=== PATIENT | male | born 1965 | race African-American/Black ===

== ENCOUNTER 2018-03-13 14:36 | Inpatient (IN) | payer MEDICARE, MEDICAID, OTHER ==
[~2018-03-13] VITALS: Ht 185.4 cm; Wt 91.6 kg
[~2018-03-13 14:36] MED LIST: ASPI-1158 PO; CARV25TA47 PO; FURO10VI3 PO; LISI40TA4 PO; P20 PO; POTA20TA82 PO; SIMV20TA6 PO; SPIR25TA PO
[2018-03-13] MEDS ORDERED: ONDANSETRON HCL 4MG/2ML INJ ONE (18:57)
[2018-03-14] MEDS ORDERED: FUROSEMIDE 40MG/4ML VIAL IV ONE (00:15)
[2018-03-14] MEDS ORDERED: NITROGLYCERIN OINT 1GM/INCH UDPKT TD ONE (00:15)
[2018-03-14 00:52] LABS: BASOPHILS % 1.3 % (0.0-2.0); EOSINOPHILS % 1.3 % (0.0-5.0); HEMATOCRIT. 41.9 % (42.0-52.0); LYMPHOCYTES % 20.1 % (20.0-50.0); MEAN CORPUSCULAR HEMOGLOBIN 23.4 pg (28.0-32.0); MEAN CORPUSCULAR VOLUME 75.4 fL (80.0-94.0); MEAN PLATELET VOLUME 8.7 fl (7.4-10.4); MONOCYTES % 13.7 % (2.0-8.0); NEUTROPHILS % 63.6 % (40.0-76.0); PLATELET 297 x1000/uL (130-400); RED BLOOD CELL COUNT 5.56 mill/uL (4.7-6.1); RED CELL DISTRIBUTION WIDTH 17.3 % (11.6-14.6)
[2018-03-14 01:00] LABS: INR 1.3; PROTHROMBIN TIME 13.3 sec (9.1-11.1)
[2018-03-14] MEDS ORDERED: LEVOFLOXACIN 750MG PREMIX 150 ML IV ONE (01:00)
[2018-03-14] MEDS ORDERED: SODIUM CHLORIDE 0.9% 1000ML BAG (SEPSIS BOLUS) IV ONE (01:00)
[2018-03-14 01:03] LABS: CHLORIDE 105 mEq/L (98-107)
[2018-03-14] MEDS ORDERED: ASPIRIN 81MG TABLET PO ONE (02:15)
[2018-03-14 03:26] LABS: CLARITY URINE CLEAR (CLEAR); COLOR URINE YELLOW (YELLOW); KETONES URINE NEGATIVE (NEGATIVE); LEUKOCYTE ESTERASE URINE NEGATIVE (NEGATIVE); NITRITE URINE NEGATIVE (NEGATIVE); OCCULT BLOOD URINE NEGATIVE (NEGATIVE); PH URINE 5.5 (4.5-8.0); PROTEIN URINE NEGATIVE (NEGATIVE); SPECIFIC GRAVITY URINE 1.006 (1.005-1.030); UROBILINOGEN URINE 0.2 E.U./dL (0.2-1.0)
[2018-03-14] MEDS ORDERED: IPRATROPIUM/ALBUTEROL 0.5-3(2.5)MG/3ML NEB HHN PRN (08:45)
[2018-03-14 09:26] VITALS: BP 131/105
[2018-03-14 09:30] VITALS: BP 131/105
[2018-03-14] MEDS ORDERED: FUROSEMIDE 40MG/4ML VIAL IVP SCH (09:45)
[2018-03-14] MEDS ORDERED: SACU1TAB7 PO (09:56)
[2018-03-14] MEDS ORDERED: FURO80TA87 PO (09:56)
[2018-03-14] MEDS: LOSARTAN POTASSIUM 25 MG TABLET PO SCH (11:43)
[2018-03-14] MEDS: POTASSIUM CHLORIDE 20MEQ TABLET SR PO SCH ×2 (11:43→18:49)
[2018-03-14] MEDS: SPIRONOLACTONE 25MG TABLET PO SCH (11:44)
[2018-03-14] MEDS: AMLODIPINE 2.5MG TABLET PO SCH ×2 (11:44→21:00)
[2018-03-14] MEDS ORDERED: LORAZEPAM 0.5MG TABLET PO PRN (11:45)
[2018-03-14] MEDS ORDERED: CLONIDINE 0.1MG TABLET PO PRN (11:45)
[2018-03-14] MEDS ORDERED: ONDANSETRON HCL 4MG/2ML INJ IV PRN (11:45)
[2018-03-14] MEDS ORDERED: HYDROCODONE/ACETAMINOPHEN 5/325MG TABLET PO PRN (11:45)
[2018-03-14] MEDS ORDERED: ACETAMINOPHEN 325MG TABLET PO PRN (11:45)
[2018-03-14] MEDS ORDERED: DOCUSATE SODIUM 100MG CAPSULE PO PRN (11:45)
[2018-03-14] MEDS ORDERED: DEXTROSE 50% WATER 50ML SYRINGE IV PRN (11:45)
[2018-03-14] MEDS: BLOOD SUGAR DIAGNOSTIC STRIP TEST SCH ×3 (11:58→21:26)
[2018-03-14] MEDS: INSULIN LISPRO 100 UNITS/ML SUBCUT SCH ×3 (11:58→21:00)
[2018-03-14 12:08] VITALS: BP 126/86
[2018-03-14 14:31] LABS: *AMPHETAMINES SCREEN URINE NEGATIVE (NEGATIVE); *BARBITURATES SCREEN URINE NEGATIVE (NEGATIVE); *BENZODIAZEPINES SCREEN URINE NEGATIVE (NEGATIVE); *COCAINE SCREEN URINE NEGATIVE (NEGATIVE); METHADONE URINE SCREEN NEGATIVE (NEGATIVE); OPIATES URINE SCREEN NEGATIVE (NEGATIVE)
[2018-03-14 14:32] LABS: CANNABINOID URINE SCREEN NEGATIVE (NEGATIVE); PHENCYCLIDINE URINE SCREEN NEGATIVE (NEGATIVE)
[2018-03-14 15:49] LABS: FERRITIN 108 ng/mL (22-322)
[2018-03-14 16:00] LABS: HEPATITIS B SURFACE ANTIGEN NEGATIVE
[2018-03-14 16:03] LABS: VITAMIN B12 SERUM 621 pg/mL (211-911)
[2018-03-14 16:29] LABS: HEPATITIS A AB IGM NEGATIVE (NEGATIVE)
[2018-03-14 16:36] VITALS: BP 126/90
[2018-03-14 20:00] VITALS: BP 109/68
[2018-03-14] MEDS: FUROSEMIDE 100MG/10ML VIAL IVP SCH (20:08)
[2018-03-14] MEDS: ATORVASTATIN CALCIUM 20MG TABLET PO SCH (21:49)
[2018-03-15] VITALS: BP 132/79
[2018-03-15] MEDS: IPRATROPIUM/ALBUTEROL 0.5-3(2.5)MG/3ML NEB HHN SCH ×4 (03:14→20:03)
[2018-03-15 04:00] VITALS: BP 120/60
[2018-03-15] MEDS: FUROSEMIDE 100MG/10ML VIAL IVP SCH ×2 (06:18→17:31)
[2018-03-15] MEDS: BLOOD SUGAR DIAGNOSTIC STRIP TEST SCH ×4 (06:24→21:00)
[2018-03-15 07:01] LABS: D-DIMER 1.03 mg/L FEU (<0.50); INR 1.3; PROTHROMBIN TIME 13.4 sec (9.1-11.1)
[2018-03-15 07:02] LABS: HEMATOCRIT. 38.4 % (42.0-52.0); HEMOGLOBIN. 11.8 g/dL (14.0-18.0); MEAN CORPUSCULAR HEMOGLOBIN 23.1 pg (28.0-32.0); MEAN CORPUSCULAR VOLUME 75.3 fL (80.0-94.0); MEAN PLATELET VOLUME 8.7 fl (7.4-10.4); PLATELET 216 x1000/uL (130-400); RED BLOOD CELL COUNT 5.11 mill/uL (4.7-6.1); RED CELL DISTRIBUTION WIDTH 16.9 % (11.6-14.6)
[2018-03-15 07:12] LABS: PHOSPHORUS 3.2 mg/dL (2.5-4.9)
[2018-03-15 07:16] LABS: T4 FREE 1.16 ng/dL (0.76-1.46)
[2018-03-15 07:17] LABS: CREATINE KINASE MB FRACTION 5.2 ng/mL (0.5-3.6)
[2018-03-15] MEDS: INSULIN LISPRO 100 UNITS/ML SUBCUT SCH ×4 (07:50→21:00)
[2018-03-15 08:00] VITALS: BP 132/82
[2018-03-15] MEDS: SPIRONOLACTONE 25MG TABLET PO SCH (10:59)
[2018-03-15] MEDS: AMLODIPINE 2.5MG TABLET PO SCH ×2 (10:59→22:40)
[2018-03-15] MEDS: POTASSIUM CHLORIDE 20MEQ TABLET SR PO SCH ×2 (11:00→17:10)
[2018-03-15] MEDS: LOSARTAN POTASSIUM 25 MG TABLET PO SCH (11:01)
[2018-03-15 12:00] VITALS: BP 96/54
[2018-03-15 12:35] LABS: PLATELET ESTIMATE NORMAL
[2018-03-15 16:00] VITALS: BP 114/72
[2018-03-15] MEDS: DOCUSATE SODIUM 100MG CAPSULE PO SCH (18:00)
[2018-03-15 20:00] VITALS: BP 120/71
[2018-03-15] MEDS: ATORVASTATIN CALCIUM 20MG TABLET PO SCH (22:40)
[2018-03-15] MEDS: ASCORBIC ACID 250 MG TABLET PO SCH (22:40)
[2018-03-16] VITALS: BP 124/88
[2018-03-16] MEDS: IPRATROPIUM/ALBUTEROL 0.5-3(2.5)MG/3ML NEB HHN SCH ×4 (01:39→19:57)
[2018-03-16 04:00] VITALS: BP 112/64
[2018-03-16] MEDS: FUROSEMIDE 100MG/10ML VIAL IVP SCH ×2 (06:15→18:32)
[2018-03-16] MEDS: BLOOD SUGAR DIAGNOSTIC STRIP TEST SCH ×4 (06:16→21:06)
[2018-03-16] MEDS: INSULIN LISPRO 100 UNITS/ML SUBCUT SCH ×4 (07:50→21:00)
[2018-03-16 07:59] VITALS: BP 117/70
[2018-03-16] MEDS: AMLODIPINE 2.5MG TABLET PO SCH ×2 (08:12→20:58)
[2018-03-16] MEDS: ASCORBIC ACID 250 MG TABLET PO SCH ×2 (08:49→20:58)
[2018-03-16] MEDS: LOSARTAN POTASSIUM 25 MG TABLET PO SCH (08:49)
[2018-03-16] MEDS: POTASSIUM CHLORIDE 20MEQ TABLET SR PO SCH ×2 (08:50→18:32)
[2018-03-16] MEDS: SPIRONOLACTONE 25MG TABLET PO SCH (08:50)
[2018-03-16] MEDS: FERROUS SULFATE 325MG TABLET PO SCH ×3 (08:50→18:32)
[2018-03-16] MEDS: DOCUSATE SODIUM 100MG CAPSULE PO SCH ×2 (08:50→18:32)
[2018-03-16 09:17] LABS: HEMATOCRIT. 41.5 % (42.0-52.0); HEMOGLOBIN. 13.1 g/dL (14.0-18.0); MEAN CORPUSCULAR HEMOGLOBIN 23.4 pg (28.0-32.0); MEAN CORPUSCULAR VOLUME 74.3 fL (80.0-94.0); PLATELET 251 x1000/uL (130-400); RED BLOOD CELL COUNT 5.59 mill/uL (4.7-6.1)
[2018-03-16 09:47] LABS: CHLORIDE 101 mEq/L (98-107)
[2018-03-16] MEDS ORDERED: DIPHENHYDRAMINE 50MG/ML VIAL ONE (11:29)
[2018-03-16 12:00] VITALS: BP 106/58
[2018-03-16 15:10] LABS: HIV SCREEN 4G Non Reactive (Non Reactive)
[2018-03-16 16:09] LABS: PLATELET ESTIMATE NORMAL
[2018-03-16 19:56] VITALS: BP 122/69
[2018-03-16] MEDS: ATORVASTATIN CALCIUM 20MG TABLET PO SCH (20:58)
[2018-03-16 23:45] VITALS: BP 102/72
[2018-03-17] MEDS: IPRATROPIUM/ALBUTEROL 0.5-3(2.5)MG/3ML NEB HHN SCH ×4 (01:51→20:19)
[2018-03-17 03:54] VITALS: BP 92/55
[2018-03-17 06:15] VITALS: BP 101/62
[2018-03-17] MEDS: BLOOD SUGAR DIAGNOSTIC STRIP TEST SCH ×4 (06:18→20:41)
[2018-03-17] MEDS: INSULIN LISPRO 100 UNITS/ML SUBCUT SCH ×4 (06:18→20:42)
[2018-03-17] MEDS: FUROSEMIDE 100MG/10ML VIAL IVP SCH ×2 (06:31→17:15)
[2018-03-17 08:00] VITALS: BP 101/57
[2018-03-17] MEDS: SPIRONOLACTONE 25MG TABLET PO SCH (09:00)
[2018-03-17] MEDS: AMLODIPINE 2.5MG TABLET PO SCH (09:00)
[2018-03-17] MEDS: LOSARTAN POTASSIUM 25 MG TABLET PO SCH (09:00)
[2018-03-17 09:47] LABS: HEMATOCRIT. 36.4 % (42.0-52.0); HEMOGLOBIN. 11.4 g/dL (14.0-18.0); MEAN CORPUSCULAR HEMOGLOBIN 23.1 pg (28.0-32.0); MEAN CORPUSCULAR VOLUME 74.1 fL (80.0-94.0); MEAN PLATELET VOLUME 8.7 fl (7.4-10.4); PLATELET 219 x1000/uL (130-400); RED BLOOD CELL COUNT 4.91 mill/uL (4.7-6.1); RED CELL DISTRIBUTION WIDTH 16.6 % (11.6-14.6)
[2018-03-17 11:01] LABS: CHLORIDE 96 mEq/L (98-107)
[2018-03-17] MEDS: DOCUSATE SODIUM 100MG CAPSULE PO SCH ×2 (11:23→17:51)
[2018-03-17] MEDS: FERROUS SULFATE 325MG TABLET PO SCH ×4 (11:23→17:51)
[2018-03-17] MEDS: POTASSIUM CHLORIDE 20MEQ TABLET SR PO SCH ×2 (11:24→17:51)
[2018-03-17] MEDS: ASCORBIC ACID 250 MG TABLET PO SCH ×2 (11:24→20:39)
[2018-03-17 11:56] VITALS: BP 95/54
[2018-03-17 13:59] LABS: PLATELET ESTIMATE NORMAL
[2018-03-17 16:00] VITALS: BP 99/58
[2018-03-17 20:00] VITALS: BP 101/71
[2018-03-17] MEDS: ATORVASTATIN CALCIUM 20MG TABLET PO SCH (20:38)
[2018-03-18] VITALS: BP 111/72
[2018-03-18] MEDS: IPRATROPIUM/ALBUTEROL 0.5-3(2.5)MG/3ML NEB HHN SCH ×4 (02:18→21:04)
[2018-03-18 04:00] VITALS: BP 112/63
[2018-03-18 06:22] LABS: INR 1.3; PARTIAL THROMBOPLASTIN TIME 32.2 sec (23.4-31.0); PROTHROMBIN TIME 12.7 sec (9.1-11.1)
[2018-03-18 06:29] LABS: HEMATOCRIT. 35.9 % (42.0-52.0); HEMOGLOBIN. 11.3 g/dL (14.0-18.0); MEAN CORPUSCULAR HEMOGLOBIN 23.2 pg (28.0-32.0); MEAN CORPUSCULAR VOLUME 73.6 fL (80.0-94.0); MEAN PLATELET VOLUME 9.1 fl (7.4-10.4); PLATELET 201 x1000/uL (130-400); RED BLOOD CELL COUNT 4.88 mill/uL (4.7-6.1); RED CELL DISTRIBUTION WIDTH 16.2 % (11.6-14.6)
[2018-03-18 06:38] LABS: CHLORIDE 99 mEq/L (98-107)
[2018-03-18] MEDS: FUROSEMIDE 100MG/10ML VIAL IVP SCH (06:49)
[2018-03-18] MEDS: BLOOD SUGAR DIAGNOSTIC STRIP TEST SCH ×4 (06:55→21:46)
[2018-03-18] MEDS: INSULIN LISPRO 100 UNITS/ML SUBCUT SCH ×4 (06:56→21:00)
[2018-03-18] MEDS: FERROUS SULFATE 325MG TABLET PO SCH ×3 (07:50→16:52)
[2018-03-18 08:00] VITALS: BP 118/75
[2018-03-18] MEDS ORDERED: LIDOCAINE HCL 1% 20ML VIAL (Pyxis) INJ ONE (10:19)
[2018-03-18] MEDS ORDERED: SODIUM BICARBONATE 4% (2.4MEQ) 5ML VIAL IV ONE (10:20)
[2018-03-18 12:00] VITALS: BP 116/72
[2018-03-18] MEDS: LOSARTAN POTASSIUM 25 MG TABLET PO SCH (12:09)
[2018-03-18] MEDS: DOCUSATE SODIUM 100MG CAPSULE PO SCH ×2 (12:09→16:52)
[2018-03-18] MEDS: POTASSIUM CHLORIDE 20MEQ TABLET SR PO SCH (12:10)
[2018-03-18] MEDS: AMLODIPINE 2.5MG TABLET PO SCH (12:10)
[2018-03-18] MEDS: ASCORBIC ACID 250 MG TABLET PO SCH ×2 (12:11→21:46)
[2018-03-18] MEDS: SPIRONOLACTONE 25MG TABLET PO SCH (12:12)
[2018-03-18 16:00] VITALS: BP 120/76
[2018-03-18 19:19] LABS: PLATELET ESTIMATE NORMAL
[2018-03-18 20:00] VITALS: BP 120/77
[2018-03-18] MEDS: ATORVASTATIN CALCIUM 20MG TABLET PO SCH (21:46)
[2018-03-18] MEDS: FUROSEMIDE 40MG TABLET PO SCH (21:46)
[2018-03-19] VITALS: BP 115/75
[2018-03-19] MEDS: IPRATROPIUM/ALBUTEROL 0.5-3(2.5)MG/3ML NEB HHN SCH ×3 (01:26→15:36)
[2018-03-19 04:00] VITALS: BP 107/73
[2018-03-19] MEDS: BLOOD SUGAR DIAGNOSTIC STRIP TEST SCH ×3 (07:20→17:20)
[2018-03-19] MEDS: INSULIN LISPRO 100 UNITS/ML SUBCUT SCH ×3 (07:50→17:50)
[2018-03-19 07:56] LABS: HEMATOCRIT. 38.4 % (42.0-52.0); MEAN CORPUSCULAR HEMOGLOBIN 23.2 pg (28.0-32.0); MEAN CORPUSCULAR VOLUME 74.3 fL (80.0-94.0); MEAN PLATELET VOLUME 9.3 fl (7.4-10.4); PLATELET 178 x1000/uL (130-400); RED BLOOD CELL COUNT 5.18 mill/uL (4.7-6.1); RED CELL DISTRIBUTION WIDTH 16.4 % (11.6-14.6)
[2018-03-19] MEDS ORDERED: POTASSIUM CHLORIDE 20MEQ TABLET SR PO SCH (08:00)
[2018-03-19] MEDS: LOSARTAN POTASSIUM 25 MG TABLET PO SCH (09:00)
[2018-03-19] MEDS: AMLODIPINE 2.5MG TABLET PO SCH (09:00)
[2018-03-19 09:16] VITALS: BP 106/60
[2018-03-19 09:51] LABS: CHLORIDE 97 mEq/L (98-107)
[2018-03-19] MEDS: DOCUSATE SODIUM 100MG CAPSULE PO SCH ×2 (10:54→18:52)
[2018-03-19] MEDS: SPIRONOLACTONE 25MG TABLET PO SCH (10:54)
[2018-03-19] MEDS: FERROUS SULFATE 325MG TABLET PO SCH ×3 (10:55→18:52)
[2018-03-19] MEDS: FUROSEMIDE 40MG TABLET PO SCH (10:55)
[2018-03-19] MEDS: ASCORBIC ACID 250 MG TABLET PO SCH (10:57)
[2018-03-19 10:59] LABS: PLATELET ESTIMATE NORMAL
[2018-03-19 12:00] VITALS: BP 100/50
[2018-03-19] MEDS ORDERED: DOCU-138 PO (12:35)
[2018-03-19] MEDS ORDERED: FURO40TA5 PO (12:35)
[2018-03-19] MEDS ORDERED: ASC250 PO (12:35)
[2018-03-19] MEDS ORDERED: ATOR20TA PO (12:35)
[2018-03-19] MEDS ORDERED: AMLO2.5T45 PO (12:35)
[2018-03-19] MEDS ORDERED: FERR325T23 PO (12:35)
[2018-03-19] MEDS ORDERED: POTA20TA82 PO (12:35)
[2018-03-19 17:37] VITALS: BP 102/60
== END 2018-03-19 20:00 | disposition home or self-care (01) | DRG 291 ==
LOC: ER 15:29 → EDBEDREQ 03-14 03:01 → ENRESERV 03-14 07:13 → 6WST 03-14 09:13
PROVIDERS: ADMIT Internal Medicine; ATTEND Internal Medicine
PROC: 0W993ZZ Drainage of Right Pleural Cavity, Percutaneous Approach (ICD-10-PCS; principal; 2018-03-18)
DX: I11.0 Hypertensive heart disease with heart failure (principal); J96.00 Acute respiratory failure, unspecified whether with hypoxia or hypercapnia; E44.0 Moderate protein-calorie malnutrition; J44.1 Chronic obstructive pulmonary disease with (acute) exacerbation; R18.8 Other ascites; D68.9 Coagulation defect, unspecified; J90 Pleural effusion, not elsewhere classified; I50.43 Acute on chronic combined systolic (congestive) and diastolic (congestive) heart failure; I42.0 Dilated cardiomyopathy; N28.1 Cyst of kidney, acquired; I44.7 Left bundle-branch block, unspecified; E78.5 Hyperlipidemia, unspecified; D50.9 Iron deficiency anemia, unspecified; N50.89 Other specified disorders of the male genital organs; I27.20 Pulmonary hypertension, unspecified; I07.1 Rheumatic tricuspid insufficiency; I45.81 Long QT syndrome; Z79.899 Other long term (current) drug therapy; Z79.82 Long term (current) use of aspirin; Z68.26 Body mass index [BMI] 26.0-26.9, adult
CPT/HCPCS: 32555; 36415; 71045; 71250; 74176; 76705; 80048; 80061; 80305; 82550; 82553; 82607; 82728; 82746; 82962; 83036; 83540; 83550; 83605; 83735; 83880; 84100; 84439; 84443; 84481; 84484; 85379; 86705; 86709; 86803; 87340; 87389; 93005; 93306; 93970; 96365; 96366; 96375; 99285; J1200; J1815; J1940; J1956; J2405; J3490; J7030; J7620

== ENCOUNTER 2018-06-15 13:43 | Inpatient (IN) | payer MEDICARE, MEDICAID ==
[~2018-06-15] VITALS: Ht 180.3 cm; Wt 86.2 kg
[~2018-06-15 13:43] MED LIST changes: +AMLO2.5T45 PO; +ASC250 PO; +ATOR20TA PO; -CARV25TA47 PO; +DOCU-138 PO; +FERR325T23 PO; -FURO10VI3 PO; +FURO40TA5 PO; -LISI40TA4 PO; -P20 PO; +SACU1TAB7 PO; -SIMV20TA6 PO
[2018-06-15] MEDS ORDERED: MORPHINE SULFATE 4 MG/ML CPJ (NOT FOR IM USE) IV STA (16:28)
[2018-06-15] MEDS ORDERED: ONDANSETRON HCL 4MG/2ML INJ IV STA (16:28)
[2018-06-15 16:40] LABS: BASOPHILS % 0.3 % (0.0-2.0); EOSINOPHILS % 1.8 % (0.0-5.0); HEMATOCRIT. 43.6 % (42.0-52.0); HEMOGLOBIN. 13.8 g/dL (14.0-18.0); LYMPHOCYTES % 16.8 % (20.0-50.0); MEAN CORPUSCULAR HEMOGLOBIN 23.4 pg (28.0-32.0); MEAN CORPUSCULAR VOLUME 73.7 fL (80.0-94.0); MEAN PLATELET VOLUME 9.3 fl (7.4-10.4); MONOCYTES % 12.6 % (2.0-8.0); NEUTROPHILS % 68.5 % (40.0-76.0); PLATELET 157 x1000/uL (130-400); RED BLOOD CELL COUNT 5.91 mill/uL (4.7-6.1); RED CELL DISTRIBUTION WIDTH 18.1 % (11.6-14.6)
[2018-06-15 16:43] LABS: CHLORIDE 106 mEq/L (98-107)
[2018-06-15 16:46] LABS: INR 1.4; PARTIAL THROMBOPLASTIN TIME 30.8 sec (23.4-31.0); PROTHROMBIN TIME 13.9 sec (9.6-11.0)
[2018-06-15] MEDS ORDERED: POTASSIUM CHLORIDE 20MEQ TABLET SR PO ONE (17:15)
[2018-06-15] MEDS ORDERED: GUAIFENESIN 200MG/10ML SUGAR FREE UDC PO PRN (19:00)
[2018-06-15] MEDS ORDERED: DOCUSATE SODIUM 100MG CAPSULE PO PRN (19:00)
[2018-06-15] MEDS ORDERED: ONDANSETRON HCL 4MG/2ML INJ IV PRN (19:00)
[2018-06-15] MEDS ORDERED: IPRATROPIUM/ALBUTEROL 0.5-3(2.5)MG/3ML NEB INH PRN (19:00)
[2018-06-15] MEDS ORDERED: CLONIDINE 0.1MG TABLET PO PRN (19:00)
[2018-06-15] MEDS ORDERED: DIPHENHYDRAMINE 50MG/ML VIAL IV PRN (19:00)
[2018-06-15] MEDS ORDERED: MAGNESIUM/ALUMINUM HYDROXIDE/SIMETHICONE 30ML UDC PO PRN (19:00)
[2018-06-15] MEDS ORDERED: MORPHINE SULFATE 4 MG/ML CPJ (NOT FOR IM USE) IV PRN (21:25)
[2018-06-15 22:00] VITALS: BP 120/83
[2018-06-15 23:00] VITALS: BP 120/83
[2018-06-16] VITALS: BP 129/92
[2018-06-16 00:41] LABS: CREATINE KINASE MB FRACTION 1.9 ng/mL (0.5-3.6)
[2018-06-16 04:00] VITALS: BP 110/71
[2018-06-16 06:18] LABS: HEMATOCRIT. 39.1 % (42.0-52.0); HEMOGLOBIN. 12.4 g/dL (14.0-18.0); MEAN CORPUSCULAR HEMOGLOBIN 23.5 pg (28.0-32.0); MEAN CORPUSCULAR VOLUME 74.1 fL (80.0-94.0); MEAN PLATELET VOLUME 9.4 fl (7.4-10.4); PLATELET 144 x1000/uL (130-400); RED BLOOD CELL COUNT 5.27 mill/uL (4.7-6.1)
[2018-06-16 06:21] LABS: CHLORIDE 107 mEq/L (98-107)
[2018-06-16 06:32] LABS: CREATINE KINASE 137 IU/L (39-308); HDL CHOLESTEROL 35 mg/dL (40-59)
[2018-06-16 06:33] LABS: LDL CHOLESTEROL 42 mg/dL (5-100)
[2018-06-16 06:36] LABS: CREATINE KINASE MB FRACTION 1.8 ng/mL (0.5-3.6)
[2018-06-16 08:00] VITALS: BP_SYST 176; BP_SYST 96; BP_DIAS 58; BP_DIAS 94
[2018-06-16 12:00] VITALS: BP 94/56
[2018-06-16] MEDS: AZITHROMYCIN 500 MG in DEXT 5% WATER 250 ML IV SCH (13:14)
[2018-06-16] MEDS: CEFTRIAXONE 1 G PREMIX 50 ML IV SCH (13:15)
[2018-06-16 15:29] LABS: PLATELET ESTIMATE NORMAL
[2018-06-16 16:00] VITALS: BP 104/58
[2018-06-16 20:00] VITALS: BP 102/67
[2018-06-17] VITALS: BP 100/61
[2018-06-17 04:00] VITALS: BP 97/69
[2018-06-17 07:35] VITALS: BP 101/69
[2018-06-17] MEDS: AZITHROMYCIN 500 MG in DEXT 5% WATER 250 ML IV SCH (08:00)
[2018-06-17] MEDS: CEFTRIAXONE 1 G PREMIX 50 ML IV SCH (11:46)
[2018-06-17 11:54] VITALS: BP 95/67
[2018-06-17 16:00] VITALS: BP 114/67
[2018-06-17 20:00] VITALS: BP 110/62
[2018-06-18] VITALS: BP 108/67
[2018-06-18 04:00] VITALS: BP 98/60
[2018-06-18 06:14] LABS: BASOPHILS % 1.2 % (0.0-2.0); EOSINOPHILS % 2.2 % (0.0-5.0); HEMATOCRIT. 41.5 % (42.0-52.0); HEMOGLOBIN. 13.2 g/dL (14.0-18.0); LYMPHOCYTES % 15.8 % (20.0-50.0); MEAN CORPUSCULAR HEMOGLOBIN 23.5 pg (28.0-32.0); MEAN CORPUSCULAR VOLUME 73.8 fL (80.0-94.0); MONOCYTES % 12.5 % (2.0-8.0); NEUTROPHILS % 68.3 % (40.0-76.0); RED BLOOD CELL COUNT 5.63 mill/uL (4.7-6.1); RED CELL DISTRIBUTION WIDTH 17.9 % (11.6-14.6)
[2018-06-18 06:20] LABS: CHLORIDE 102 mEq/L (98-107)
[2018-06-18 08:00] VITALS: BP 106/66
[2018-06-18] MEDS: AZITHROMYCIN 500 MG in DEXT 5% WATER 250 ML IV SCH (08:46)
[2018-06-18 10:12] LABS: PLATELET 152 x1000/uL (130-400)
[2018-06-18] MEDS ORDERED: FUROSEMIDE 40MG/4ML VIAL IVP NR (10:15)
[2018-06-18] MEDS: CEFTRIAXONE 1 G PREMIX 50 ML IV SCH (10:15)
[2018-06-18 12:00] VITALS: BP 110/81
[2018-06-18 14:58] LABS: CLARITY URINE CLEAR (CLEAR); COLOR URINE YELLOW (YELLOW); KETONES URINE NEGATIVE (NEGATIVE); LEUKOCYTE ESTERASE URINE NEGATIVE (NEGATIVE); NITRITE URINE NEGATIVE (NEGATIVE); OCCULT BLOOD URINE NEGATIVE (NEGATIVE); PROTEIN URINE NEGATIVE (NEGATIVE); UROBILINOGEN URINE 0.2 E.U./dL (0.2-1.0)
[2018-06-18 15:28] LABS: *AMPHETAMINES SCREEN URINE NEGATIVE (NEGATIVE); *BARBITURATES SCREEN URINE NEGATIVE (NEGATIVE); *BENZODIAZEPINES SCREEN URINE NEGATIVE (NEGATIVE); *COCAINE SCREEN URINE NEGATIVE (NEGATIVE)
[2018-06-18 15:29] LABS: CANNABINOID URINE SCREEN NEGATIVE (NEGATIVE); METHADONE URINE SCREEN NEGATIVE (NEGATIVE); OPIATES URINE SCREEN NEGATIVE (NEGATIVE); PHENCYCLIDINE URINE SCREEN NEGATIVE (NEGATIVE)
[2018-06-18] MEDS: BUDESONIDE 0.5MG/2ML NEB HHN SCH ×2 (15:53→21:15)
[2018-06-18] MEDS: IPRATROPIUM/ALBUTEROL 0.5-3(2.5)MG/3ML NEB HHN SCH ×2 (15:57→21:14)
[2018-06-18 16:00] VITALS: BP 106/79
[2018-06-18 20:00] VITALS: BP 147/98
[2018-06-18] MEDS: ATORVASTATIN CALCIUM 20MG TABLET PO SCH (20:29)
[2018-06-18] MEDS: FUROSEMIDE 100MG/10ML VIAL IVP SCH (20:29)
[2018-06-19 00:07] VITALS: BP 135/91
[2018-06-19] MEDS: IPRATROPIUM/ALBUTEROL 0.5-3(2.5)MG/3ML NEB HHN SCH ×4 (01:53→20:09)
[2018-06-19 04:00] VITALS: BP 115/43
[2018-06-19 07:08] LABS: HEMATOCRIT. 38.7 % (42.0-52.0); HEMOGLOBIN. 12.5 g/dL (14.0-18.0); MEAN CORPUSCULAR HEMOGLOBIN 23.5 pg (28.0-32.0); MEAN CORPUSCULAR VOLUME 72.8 fL (80.0-94.0); MEAN PLATELET VOLUME 9.9 fl (7.4-10.4); PLATELET 150 x1000/uL (130-400); RED BLOOD CELL COUNT 5.32 mill/uL (4.7-6.1); RED CELL DISTRIBUTION WIDTH 17.9 % (11.6-14.6)
[2018-06-19 07:25] LABS: CHLORIDE 104 mEq/L (98-107)
[2018-06-19 08:00] VITALS: BP 118/73
[2018-06-19] MEDS: AZITHROMYCIN 500 MG in DEXT 5% WATER 250 ML IV SCH (08:42)
[2018-06-19] MEDS: FUROSEMIDE 100MG/10ML VIAL IVP SCH ×2 (08:43→20:51)
[2018-06-19] MEDS: BUDESONIDE 0.5MG/2ML NEB HHN SCH ×2 (10:10→20:09)
[2018-06-19 10:23] LABS: PLATELET ESTIMATE NORMAL
[2018-06-19] MEDS: CEFTRIAXONE 1 G PREMIX 50 ML IV SCH (11:33)
[2018-06-19] MEDS: ACETAMINOPHEN 325MG TABLET PO PRN (11:37)
[2018-06-19 12:00] VITALS: BP 108/70
[2018-06-19] MEDS: HYDROCODONE/ACETAMINOPHEN 5/325MG TABLET PO PRN (12:15)
[2018-06-19] MEDS ORDERED: POTASSIUM CHLORIDE 20MEQ TABLET SR PO SCH (12:45)
[2018-06-19 16:26] VITALS: BP 106/68
[2018-06-19 20:00] VITALS: BP 117/85
[2018-06-19] MEDS: ATORVASTATIN CALCIUM 20MG TABLET PO SCH (20:51)
[2018-06-20] VITALS: BP 107/66
[2018-06-20] MEDS: HYDROCODONE/ACETAMINOPHEN 5/325MG TABLET PO PRN (00:03)
[2018-06-20] MEDS: IPRATROPIUM/ALBUTEROL 0.5-3(2.5)MG/3ML NEB HHN SCH ×3 (01:32→14:29)
[2018-06-20 04:00] VITALS: BP 111/79
[2018-06-20 05:47] LABS: EOSINOPHILS % 1.3 % (0.0-5.0); HEMATOCRIT. 41.7 % (42.0-52.0); HEMOGLOBIN. 13.4 g/dL (14.0-18.0); LYMPHOCYTES % 10.6 % (20.0-50.0); MEAN CORPUSCULAR HEMOGLOBIN 23.6 pg (28.0-32.0); MEAN CORPUSCULAR VOLUME 73.6 fL (80.0-94.0); MEAN PLATELET VOLUME 9.7 fl (7.4-10.4); MONOCYTES % 11.3 % (2.0-8.0); NEUTROPHILS % 75.8 % (40.0-76.0); PLATELET 163 x1000/uL (130-400); RED BLOOD CELL COUNT 5.67 mill/uL (4.7-6.1); RED CELL DISTRIBUTION WIDTH 18.1 % (11.6-14.6)
[2018-06-20 07:08] LABS: CHLORIDE 100 mEq/L (98-107)
[2018-06-20 08:00] VITALS: BP 102/62
[2018-06-20] MEDS: BUDESONIDE 0.5MG/2ML NEB HHN SCH (08:12)
[2018-06-20] MEDS: AZITHROMYCIN 500 MG in DEXT 5% WATER 250 ML IV SCH (09:13)
[2018-06-20] MEDS: FUROSEMIDE 100MG/10ML VIAL IVP SCH (09:13)
[2018-06-20] MEDS: ACETAMINOPHEN 325MG TABLET PO PRN (09:16)
[2018-06-20] MEDS: CEFTRIAXONE 1 G PREMIX 50 ML IV SCH (10:32)
[2018-06-20 12:00] VITALS: BP 110/74
[2018-06-20 14:55] VITALS: BP 110/74
== END 2018-06-20 16:46 | disposition home or self-care (01) | DRG 871 ==
LOC: ER 13:43 → EDBEDREQ 16:53 → 7WST 17:30 → EDBEDREQ 17:40 → ENRESERV 21:30
PROVIDERS: ADMIT Internal Medicine; ATTEND Internal Medicine
PROC: 0W993ZZ Drainage of Right Pleural Cavity, Percutaneous Approach (ICD-10-PCS; principal; 2018-06-17)
DX: A41.9 Sepsis, unspecified organism (principal); J96.00 Acute respiratory failure, unspecified whether with hypoxia or hypercapnia; I50.23 Acute on chronic systolic (congestive) heart failure; J18.1 Lobar pneumonia, unspecified organism; J90 Pleural effusion, not elsewhere classified; I13.0 Hypertensive heart and chronic kidney disease with heart failure and stage 1 through stage 4 chronic kidney disease, or unspecified chronic kidney disease; I42.0 Dilated cardiomyopathy; J44.0 Chronic obstructive pulmonary disease with (acute) lower respiratory infection; E87.6 Hypokalemia; D70.9 Neutropenia, unspecified; E78.5 Hyperlipidemia, unspecified; I08.1 Rheumatic disorders of both mitral and tricuspid valves; I27.20 Pulmonary hypertension, unspecified; I44.7 Left bundle-branch block, unspecified; J44.9 Chronic obstructive pulmonary disease, unspecified; D64.9 Anemia, unspecified; N18.9 Chronic kidney disease, unspecified; N50.89 Other specified disorders of the male genital organs; Z79.899 Other long term (current) drug therapy
CPT/HCPCS: 32555; 36415; 71045; 71250; 76705; 80048; 80061; 80305; 82550; 82553; 83036; 83735; 83880; 84100; 84443; 84484; 88108; 88312; 93005; 93970; 94640; 96374; 96375; 97162; 97166; 97535; 99285; C1893; J0456; J0696; J1940; J2270; J2405; J7040; J7060; J7620; J7626

== ENCOUNTER 2018-08-11 08:20 | Inpatient (IN) | payer MEDICARE, MEDICAID ==
[~2018-08-11] VITALS: Ht 180.3 cm; Wt 83.9 kg
[2018-08-11 11:26] LABS: BASOPHILS % 1.3 % (0.0-2.0); HEMATOCRIT. 42.5 % (42.0-52.0); HEMOGLOBIN. 13.5 g/dL (14.0-18.0); LYMPHOCYTES % 21.9 % (20.0-50.0); MEAN CORPUSCULAR VOLUME 75.2 fL (80.0-94.0); MEAN PLATELET VOLUME 9.2 fl (7.4-10.4); MONOCYTES % 12.6 % (2.0-8.0); NEUTROPHILS % 63.2 % (40.0-76.0); PLATELET 190 x1000/uL (130-400); RED BLOOD CELL COUNT 5.65 mill/uL (4.7-6.1); RED CELL DISTRIBUTION WIDTH 16.8 % (11.6-14.6)
[2018-08-11 11:27] LABS: CHLORIDE 109 mEq/L (98-107)
[2018-08-11 11:29] LABS: INR 1.3; PROTHROMBIN TIME 13.1 sec (9.6-11.0)
[2018-08-11] MEDS ORDERED: FUROSEMIDE 40MG/4ML VIAL IVP ONE (12:30)
[2018-08-11 14:16] LABS: CLARITY URINE CLEAR (CLEAR); COLOR URINE YELLOW (YELLOW); KETONES URINE NEGATIVE (NEGATIVE); LEUKOCYTE ESTERASE URINE NEGATIVE (NEGATIVE); NITRITE URINE NEGATIVE (NEGATIVE); OCCULT BLOOD URINE NEGATIVE (NEGATIVE); PH URINE 6.5 (4.5-8.0); PROTEIN URINE TRACE (NEGATIVE); UROBILINOGEN URINE 0.2 E.U./dL (0.2-1.0)
[2018-08-11] MEDS ORDERED: FUROSEMIDE 40MG/4ML VIAL IVP SCH (15:00)
[2018-08-11] MEDS ORDERED: IPRATROPIUM/ALBUTEROL 0.5-3(2.5)MG/3ML NEB HHN PRN (15:00)
[2018-08-11] MEDS ORDERED: ONDANSETRON HCL 4MG/2ML INJ IV PRN (15:00)
[2018-08-11 17:30] VITALS: BP 128/76
[2018-08-11] MEDS ORDERED: GLIP5TAB12 PO (18:13)
[2018-08-11] MEDS ORDERED: FERR300S PO (18:13)
[2018-08-11] MEDS ORDERED: DOCU-272 PO (18:13)
[2018-08-11] MEDS ORDERED: CHOL40002 PO (18:13)
[2018-08-11] MEDS: FUROSEMIDE 40MG/4ML VIAL IVP SCH (18:20)
[2018-08-11 18:39] VITALS: BP 128/76
[2018-08-11 20:00] VITALS: BP 136/79
[2018-08-11] MEDS: CARVEDILOL 3.125 MG TABLET PO SCH (20:32)
[2018-08-12] VITALS (7 sets, daily range): BP systolic 96–132; BP diastolic 70–81
[2018-08-12] MEDS: IPRATROPIUM/ALBUTEROL 0.5-3(2.5)MG/3ML NEB HHN SCH ×4 (01:25→21:10)
[2018-08-12 07:48] LABS: EOSINOPHILS % 2.3 % (0.0-5.0); HEMATOCRIT. 39.5 % (42.0-52.0); HEMOGLOBIN. 12.7 g/dL (14.0-18.0); LYMPHOCYTES % 17.6 % (20.0-50.0); MEAN CORPUSCULAR HEMOGLOBIN 24.1 pg (28.0-32.0); MEAN CORPUSCULAR VOLUME 74.7 fL (80.0-94.0); MEAN PLATELET VOLUME 9.7 fl (7.4-10.4); MONOCYTES % 12.7 % (2.0-8.0); NEUTROPHILS % 66.4 % (40.0-76.0); PLATELET 183 x1000/uL (130-400); RED BLOOD CELL COUNT 5.28 mill/uL (4.7-6.1); RED CELL DISTRIBUTION WIDTH 16.5 % (11.6-14.6)
[2018-08-12 08:05] LABS: CHLORIDE 105 mEq/L (98-107)
[2018-08-12] MEDS ORDERED: POTASSIUM CHLORIDE 20MEQ TABLET SR PO NR (08:30)
[2018-08-12] MEDS: CARVEDILOL 3.125 MG TABLET PO SCH ×2 (09:00→20:49)
[2018-08-12] MEDS: LOSARTAN POTASSIUM 25 MG TABLET PO SCH (09:00)
[2018-08-12] MEDS: AMLODIPINE 2.5MG TABLET PO SCH (09:00)
[2018-08-12] MEDS: BUDESONIDE 0.5MG/2ML NEB HHN SCH ×2 (09:37→21:10)
[2018-08-12] MEDS: FUROSEMIDE 40MG/4ML VIAL IVP SCH ×2 (10:22→17:46)
[2018-08-12] MEDS: ACETAMINOPHEN 325MG TABLET PO PRN (22:53)
[2018-08-13] VITALS: BP 113/74
[2018-08-13] MEDS: IPRATROPIUM/ALBUTEROL 0.5-3(2.5)MG/3ML NEB HHN SCH ×4 (02:11→21:57)
[2018-08-13 04:00] VITALS: BP 105/62
[2018-08-13 07:06] LABS: CHLORIDE 105 mEq/L (98-107)
[2018-08-13 07:14] LABS: BASOPHILS % 1.2 % (0.0-2.0); EOSINOPHILS % 2.5 % (0.0-5.0); HEMATOCRIT. 36.7 % (42.0-52.0); HEMOGLOBIN. 11.9 g/dL (14.0-18.0); LYMPHOCYTES % 13.4 % (20.0-50.0); MEAN CORPUSCULAR VOLUME 74.2 fL (80.0-94.0); MEAN PLATELET VOLUME 9.1 fl (7.4-10.4); MONOCYTES % 14.2 % (2.0-8.0); NEUTROPHILS % 68.7 % (40.0-76.0); PLATELET 173 x1000/uL (130-400); RED BLOOD CELL COUNT 4.95 mill/uL (4.7-6.1); RED CELL DISTRIBUTION WIDTH 16.2 % (11.6-14.6)
[2018-08-13 08:00] VITALS: BP 111/74
[2018-08-13] MEDS: CARVEDILOL 3.125 MG TABLET PO SCH ×2 (09:00→20:25)
[2018-08-13] MEDS: LOSARTAN POTASSIUM 25 MG TABLET PO SCH (09:00)
[2018-08-13] MEDS: AMLODIPINE 2.5MG TABLET PO SCH (09:00)
[2018-08-13] MEDS: BUDESONIDE 0.5MG/2ML NEB HHN SCH ×2 (09:11→21:57)
[2018-08-13] MEDS: FUROSEMIDE 40MG/4ML VIAL IVP SCH ×2 (09:41→17:19)
[2018-08-13] MEDS ORDERED: LIDOCAINE HCL 1% 20ML VIAL (Pyxis) INJ ONE (10:56)
[2018-08-13] MEDS ORDERED: SODIUM BICARBONATE 4% (2.4MEQ) 5ML VIAL IV ONE (10:57)
[2018-08-13 12:00] VITALS: BP 107/72
[2018-08-13 16:00] VITALS: BP 104/63
[2018-08-13 20:00] VITALS: BP 119/80
[2018-08-14] VITALS: BP 101/73
[2018-08-14] MEDS: IPRATROPIUM/ALBUTEROL 0.5-3(2.5)MG/3ML NEB HHN SCH ×2 (02:31→20:20)
[2018-08-14 04:00] VITALS: BP 107/62
[2018-08-14 06:41] LABS: CHLORIDE 101 mEq/L (98-107)
[2018-08-14 06:49] LABS: BASOPHILS % 0.6 % (0.0-2.0); EOSINOPHILS % 1.4 % (0.0-5.0); HEMATOCRIT. 39.2 % (42.0-52.0); HEMOGLOBIN. 12.6 g/dL (14.0-18.0); LYMPHOCYTES % 8.8 % (20.0-50.0); MEAN CORPUSCULAR HEMOGLOBIN 24.2 pg (28.0-32.0); MEAN CORPUSCULAR VOLUME 75.1 fL (80.0-94.0); MEAN PLATELET VOLUME 9.4 fl (7.4-10.4); MONOCYTES % 8.9 % (2.0-8.0); NEUTROPHILS % 80.3 % (40.0-76.0); PLATELET 182 x1000/uL (130-400); RED BLOOD CELL COUNT 5.21 mill/uL (4.7-6.1); RED CELL DISTRIBUTION WIDTH 16.4 % (11.6-14.6)
[2018-08-14 08:30] VITALS: BP 102/62
[2018-08-14] MEDS: CARVEDILOL 3.125 MG TABLET PO SCH ×2 (09:00→22:28)
[2018-08-14] MEDS: AMLODIPINE 2.5MG TABLET PO SCH (09:00)
[2018-08-14] MEDS: LOSARTAN POTASSIUM 25 MG TABLET PO SCH (09:00)
[2018-08-14] MEDS: FUROSEMIDE 40MG/4ML VIAL IVP SCH ×2 (09:03→17:33)
[2018-08-14 12:00] VITALS: BP 91/58
[2018-08-14 16:00] VITALS: BP 103/67
[2018-08-14 20:00] VITALS: BP 110/69
[2018-08-14] MEDS: BUDESONIDE 0.5MG/2ML NEB HHN SCH (20:20)
[2018-08-15] VITALS (7 sets, daily range): BP systolic 91–120; BP diastolic 55–72
[2018-08-15] MEDS: IPRATROPIUM/ALBUTEROL 0.5-3(2.5)MG/3ML NEB HHN SCH ×4 (02:00→20:20)
[2018-08-15 06:43] LABS: BASOPHILS % 0.5 % (0.0-2.0); HEMATOCRIT. 38.1 % (42.0-52.0); HEMOGLOBIN. 12.2 g/dL (14.0-18.0); LYMPHOCYTES % 13.4 % (20.0-50.0); MEAN CORPUSCULAR HEMOGLOBIN 23.7 pg (28.0-32.0); MEAN CORPUSCULAR VOLUME 74.1 fL (80.0-94.0); MEAN PLATELET VOLUME 9.7 fl (7.4-10.4); MONOCYTES % 14.6 % (2.0-8.0); NEUTROPHILS % 69.5 % (40.0-76.0); PLATELET 174 x1000/uL (130-400); RED BLOOD CELL COUNT 5.14 mill/uL (4.7-6.1); RED CELL DISTRIBUTION WIDTH 16.2 % (11.6-14.6)
[2018-08-15 07:45] LABS: CHLORIDE 100 mEq/L (98-107)
[2018-08-15] MEDS: LOSARTAN POTASSIUM 25 MG TABLET PO SCH (09:00)
[2018-08-15] MEDS: AMLODIPINE 2.5MG TABLET PO SCH (09:00)
[2018-08-15] MEDS: CARVEDILOL 3.125 MG TABLET PO SCH ×2 (09:00→21:58)
[2018-08-15] MEDS: FUROSEMIDE 40MG/4ML VIAL IVP SCH ×2 (09:15→19:25)
[2018-08-15] MEDS: BUDESONIDE 0.5MG/2ML NEB HHN SCH ×2 (09:56→20:20)
[2018-08-15] MEDS: CEFEPIME 2,000 MG in DEXT 5% WATER 100 ML IV SCH (15:46)
[2018-08-15] MEDS: ACETAMINOPHEN 325MG TABLET PO PRN (21:59)
[2018-08-16] VITALS: BP 106/59
[2018-08-16] MEDS: IPRATROPIUM/ALBUTEROL 0.5-3(2.5)MG/3ML NEB HHN SCH ×3 (02:22→12:17)
[2018-08-16] MEDS: CEFEPIME 2,000 MG in DEXT 5% WATER 100 ML IV SCH (02:42)
[2018-08-16 04:00] VITALS: BP 92/61
[2018-08-16] MEDS: BUDESONIDE 0.5MG/2ML NEB HHN SCH (07:40)
[2018-08-16 08:00] VITALS: BP 90/56
[2018-08-16] MEDS: CARVEDILOL 3.125 MG TABLET PO SCH (09:00)
[2018-08-16] MEDS: LOSARTAN POTASSIUM 25 MG TABLET PO SCH (09:00)
[2018-08-16] MEDS: FUROSEMIDE 40MG/4ML VIAL IVP SCH (09:00)
[2018-08-16] MEDS: AMLODIPINE 2.5MG TABLET PO SCH (09:00)
[2018-08-16 12:19] VITALS: BP 90/50
== END 2018-08-16 15:15 | disposition home or self-care (01) | DRG 291 ==
LOC: ER 08:20 → EDBEDREQ 11:31 → 7WST 13:40 → EDBEDREQ 13:42
PROVIDERS: ADMIT Internal Medicine; ATTEND Internal Medicine
PROC: 0W993ZZ Drainage of Right Pleural Cavity, Percutaneous Approach (ICD-10-PCS; principal; 2018-08-13)
DX: I13.0 Hypertensive heart and chronic kidney disease with heart failure and stage 1 through stage 4 chronic kidney disease, or unspecified chronic kidney disease (principal); I50.23 Acute on chronic systolic (congestive) heart failure; J18.9 Pneumonia, unspecified organism; J96.00 Acute respiratory failure, unspecified whether with hypoxia or hypercapnia; E44.1 Mild protein-calorie malnutrition; J91.8 Pleural effusion in other conditions classified elsewhere; J44.0 Chronic obstructive pulmonary disease with (acute) lower respiratory infection; E11.22 Type 2 diabetes mellitus with diabetic chronic kidney disease; E78.5 Hyperlipidemia, unspecified; E87.8 Other disorders of electrolyte and fluid balance, not elsewhere classified; E87.6 Hypokalemia; N18.9 Chronic kidney disease, unspecified; E04.1 Nontoxic single thyroid nodule; E78.00 Pure hypercholesterolemia, unspecified; I08.1 Rheumatic disorders of both mitral and tricuspid valves; I27.21 Secondary pulmonary arterial hypertension; I42.9 Cardiomyopathy, unspecified; I49.1 Atrial premature depolarization; Z79.899 Other long term (current) drug therapy; Z91.14 Patient's other noncompliance with medication regimen; Z79.82 Long term (current) use of aspirin; Z68.25 Body mass index [BMI] 25.0-25.9, adult
CPT/HCPCS: 32555; 36415; 71045; 71250; 80048; 83735; 83880; 84484; 87070; 93005; 93306; 94640; 96374; 99285; J0692; J1940; J3490; J7050; J7060; J7620; J7626

== ENCOUNTER 2018-12-02 08:05 | Inpatient (IN) | payer MEDICARE, MEDICAID, OTHER ==
[~2018-12-02] VITALS: Ht 180.3 cm; Wt 92.5 kg
[~2018-12-02 08:05] MED LIST changes: -AMLO2.5T45 PO; +CHOL40002 PO; +DOCU-272 PO; +FERR300S PO
[2018-12-02 08:37] LABS: BASOPHILS % 1.6 % (0.0-2.0); HEMATOCRIT. 42.1 % (42.0-52.0); HEMOGLOBIN. 13.5 g/dL (14.0-18.0); LYMPHOCYTES % 28.2 % (20.0-50.0); MEAN CORPUSCULAR HEMOGLOBIN 24.2 pg (28.0-32.0); MEAN CORPUSCULAR VOLUME 75.7 fL (80.0-94.0); MEAN PLATELET VOLUME 8.6 fl (7.4-10.4); NEUTROPHILS % 53.2 % (40.0-76.0); PLATELET 188 x1000/uL (130-400); RED BLOOD CELL COUNT 5.56 mill/uL (4.7-6.1); RED CELL DISTRIBUTION WIDTH 16.7 % (11.6-14.6)
[2018-12-02 08:42] LABS: INR 1.2
[2018-12-02 08:47] LABS: CHLORIDE 107 mEq/L (98-107)
[2018-12-02 14:00] VITALS: BP 136/88
[2018-12-02] MEDS ORDERED: ACETAMINOPHEN 325MG TABLET PO PRN (15:15)
[2018-12-02] MEDS ORDERED: ONDANSETRON HCL 4MG/2ML INJ IV PRN (15:15)
[2018-12-02] MEDS ORDERED: IPRATROPIUM/ALBUTEROL 0.5-3(2.5)MG/3ML NEB NEB PRN (15:15)
[2018-12-02] MEDS ORDERED: CLONIDINE 0.1MG TABLET PO PRN (15:15)
[2018-12-02] MEDS: FUROSEMIDE 40MG/4ML VIAL IVP SCH (16:25)
[2018-12-02] MEDS: SPIRONOLACTONE 25MG TABLET PO SCH (16:26)
[2018-12-02] MEDS: DOCUSATE SODIUM 100MG CAPSULE PO SCH (16:26)
[2018-12-02] MEDS: ENOXAPARIN 40MG/0.4ML SYR SUBCUT SCH (16:26)
[2018-12-02 16:27] VITALS: BP 131/78
[2018-12-02] MEDS: FERROUS SULFATE 325MG TABLET PO SCH (16:40)
[2018-12-02] MEDS ORDERED: DOCUSATE SODIUM 100MG CAPSULE PO SCH (17:00)
[2018-12-02 20:00] VITALS: BP 119/83
[2018-12-02] MEDS: ATORVASTATIN CALCIUM 20MG TABLET PO SCH (20:55)
[2018-12-02] MEDS: SACUBITRIL/VALSARTAN 49MG/51MG TABLET PO SCH (20:56)
[2018-12-03] VITALS: BP 114/74
[2018-12-03 02:18] LABS: CREATINE KINASE 167 IU/L (39-308)
[2018-12-03 02:20] LABS: CREATINE KINASE MB FRACTION 2.1 ng/mL (0.5-3.6)
[2018-12-03 04:00] VITALS: BP 119/77
[2018-12-03] MEDS: FUROSEMIDE 40MG/4ML VIAL IVP SCH ×2 (07:28→17:41)
[2018-12-03] MEDS: POTASSIUM CHLORIDE 20MEQ TABLET SR PO SCH (07:28)
[2018-12-03 08:00] VITALS: BP 138/77
[2018-12-03] MEDS: SACUBITRIL/VALSARTAN 49MG/51MG TABLET PO SCH ×2 (08:47→22:02)
[2018-12-03] MEDS: SPIRONOLACTONE 25MG TABLET PO SCH (08:48)
[2018-12-03] MEDS: DOCUSATE SODIUM 100MG CAPSULE PO SCH ×2 (08:48→17:42)
[2018-12-03] MEDS: FERROUS SULFATE 325MG TABLET PO SCH ×3 (08:48→17:41)
[2018-12-03 12:00] VITALS: BP 109/76
[2018-12-03 16:00] VITALS: BP 118/73
[2018-12-03] MEDS: ENOXAPARIN 40MG/0.4ML SYR SUBCUT SCH (17:42)
[2018-12-03 20:00] VITALS: BP 109/65
[2018-12-03] MEDS: CARVEDILOL 6.25 MG TABLET PO SCH (21:00)
[2018-12-03 21:05] LABS: BASOPHILS % 1.1 % (0.0-2.0); EOSINOPHILS % 3.6 % (0.0-5.0); HEMATOCRIT. 44.2 % (42.0-52.0); LYMPHOCYTES % 22.2 % (20.0-50.0); MEAN CORPUSCULAR HEMOGLOBIN 23.9 pg (28.0-32.0); MEAN CORPUSCULAR VOLUME 75.5 fL (80.0-94.0); MEAN PLATELET VOLUME 9.3 fl (7.4-10.4); MONOCYTES % 12.9 % (2.0-8.0); NEUTROPHILS % 60.2 % (40.0-76.0); PLATELET 198 x1000/uL (130-400); RED BLOOD CELL COUNT 5.86 mill/uL (4.7-6.1); RED CELL DISTRIBUTION WIDTH 16.7 % (11.6-14.6)
[2018-12-03 21:15] LABS: CHLORIDE 103 mEq/L (98-107)
[2018-12-03 21:25] LABS: CREATINE KINASE 184 IU/L (39-308)
[2018-12-03 21:26] LABS: CREATINE KINASE MB FRACTION 2.6 ng/mL (0.5-3.6)
[2018-12-03] MEDS: ATORVASTATIN CALCIUM 20MG TABLET PO SCH (22:02)
[2018-12-04] VITALS: BP 117/68
[2018-12-04 04:00] VITALS: BP 108/65
[2018-12-04] MEDS: FUROSEMIDE 40MG/4ML VIAL IVP SCH ×2 (06:25→17:12)
[2018-12-04 08:00] VITALS: BP 132/79
[2018-12-04] MEDS: SACUBITRIL/VALSARTAN 49MG/51MG TABLET PO SCH ×2 (08:43→22:42)
[2018-12-04] MEDS: POTASSIUM CHLORIDE 20MEQ TABLET SR PO SCH (08:44)
[2018-12-04] MEDS: SPIRONOLACTONE 25MG TABLET PO SCH (08:44)
[2018-12-04] MEDS: DOCUSATE SODIUM 100MG CAPSULE PO SCH ×2 (08:44→17:11)
[2018-12-04] MEDS: FERROUS SULFATE 325MG TABLET PO SCH ×3 (08:44→17:11)
[2018-12-04] MEDS: CARVEDILOL 6.25 MG TABLET PO SCH ×2 (08:45→21:25)
[2018-12-04 12:00] VITALS: BP 126/85
[2018-12-04] MEDS ORDERED: FUROSEMIDE 40MG/4ML VIAL IVP SCH (12:00)
[2018-12-04 16:00] VITALS: BP 112/66
[2018-12-04] MEDS: ENOXAPARIN 40MG/0.4ML SYR SUBCUT SCH (17:11)
[2018-12-04] MEDS: ATORVASTATIN CALCIUM 20MG TABLET PO SCH (21:24)
[2018-12-05 00:12] VITALS: BP 99/52
[2018-12-05 08:00] VITALS: BP 110/63
[2018-12-05] MEDS: FUROSEMIDE 40MG/4ML VIAL IVP SCH (08:37)
[2018-12-05] MEDS: CARVEDILOL 6.25 MG TABLET PO SCH (08:38)
[2018-12-05] MEDS: POTASSIUM CHLORIDE 20MEQ TABLET SR PO SCH (08:39)
[2018-12-05] MEDS: DOCUSATE SODIUM 100MG CAPSULE PO SCH (08:39)
[2018-12-05] MEDS: SPIRONOLACTONE 25MG TABLET PO SCH (08:39)
[2018-12-05] MEDS: FERROUS SULFATE 325MG TABLET PO SCH ×2 (08:39→13:49)
[2018-12-05] MEDS: SACUBITRIL/VALSARTAN 49MG/51MG TABLET PO SCH (13:49)
[2018-12-05 16:20] VITALS: BP 109/55
== END 2018-12-05 18:20 | disposition home or self-care (01) | DRG 292 ==
LOC: ER 08:05 → 8WST 11:24 → EDBEDREQ 11:40 → ENRESERV 12:39
PROVIDERS: ADMIT Internal Medicine; ATTEND Internal Medicine
DX: I50.23 Acute on chronic systolic (congestive) heart failure (principal); J98.11 Atelectasis; J90 Pleural effusion, not elsewhere classified; E44.1 Mild protein-calorie malnutrition; R18.8 Other ascites; I42.9 Cardiomyopathy, unspecified; I11.0 Hypertensive heart disease with heart failure; I27.20 Pulmonary hypertension, unspecified; D64.9 Anemia, unspecified; E78.00 Pure hypercholesterolemia, unspecified; E11.9 Type 2 diabetes mellitus without complications; J44.9 Chronic obstructive pulmonary disease, unspecified; Z68.28 Body mass index [BMI] 28.0-28.9, adult
CPT/HCPCS: 36415; 71045; 80048; 82550; 82553; 83880; 84484; 86850; 86900; 93005; 93970; 99285; J1650; J1940

== ENCOUNTER 2019-02-14 09:41 | Inpatient (IN) | payer MEDICARE, MEDICAID ==
[~2019-02-14] VITALS: Ht 180.3 cm; Wt 98.9 kg
[2019-02-14] MEDS ORDERED: FUROSEMIDE 40MG/4ML VIAL IV ONE (12:45)
[2019-02-14 14:31] LABS: CHLORIDE 105 mEq/L (98-107)
[2019-02-14 14:32] LABS: BASOPHILS % 1.3 % (0.0-2.0); EOSINOPHILS % 1.4 % (0.0-5.0); HEMATOCRIT. 38.9 % (42.0-52.0); HEMOGLOBIN. 12.7 g/dL (14.0-18.0); LYMPHOCYTES % 17.7 % (20.0-50.0); MEAN CORPUSCULAR HEMOGLOBIN 24.3 pg (28.0-32.0); MEAN CORPUSCULAR VOLUME 74.7 fL (80.0-94.0); MEAN PLATELET VOLUME 8.5 fl (7.4-10.4); MONOCYTES % 13.2 % (2.0-8.0); NEUTROPHILS % 66.4 % (40.0-76.0); PLATELET 236 x1000/uL (130-400); RED BLOOD CELL COUNT 5.21 mill/uL (4.7-6.1); RED CELL DISTRIBUTION WIDTH 15.5 % (11.6-14.6)
[2019-02-14] MEDS ORDERED: ACETAMINOPHEN 325MG TABLET PO PRN (15:15)
[2019-02-14] MEDS ORDERED: ONDANSETRON HCL 4MG/2ML INJ IV PRN (15:15)
[2019-02-14] MEDS: POTASSIUM CHLORIDE 20MEQ TABLET SR PO SCH (17:03)
[2019-02-14 17:11] LABS: *AMPHETAMINES SCREEN URINE NEGATIVE (NEGATIVE); *BARBITURATES SCREEN URINE NEGATIVE (NEGATIVE); *BENZODIAZEPINES SCREEN URINE NEGATIVE (NEGATIVE); *COCAINE SCREEN URINE NEGATIVE (NEGATIVE)
[2019-02-14 17:13] LABS: CANNABINOID URINE SCREEN NEGATIVE (NEGATIVE); OPIATES URINE SCREEN NEGATIVE (NEGATIVE); PHENCYCLIDINE URINE SCREEN NEGATIVE (NEGATIVE)
[2019-02-14 17:16] LABS: METHADONE URINE SCREEN NEGATIVE (NEGATIVE)
[2019-02-14 17:25] VITALS: BP 119/82
[2019-02-14] MEDS ORDERED: ENOXAPARIN 40MG/0.4ML SYR SUBCUT SCH (18:00)
[2019-02-14] MEDS ORDERED: CARV3.1242 MT (18:03)
[2019-02-14] MEDS ORDERED: LISI2.5T47 MT (18:03)
[2019-02-14 18:19] VITALS: BP 119/82
[2019-02-14] MEDS: FUROSEMIDE 40MG/4ML VIAL IVP SCH (18:30)
[2019-02-14 20:00] VITALS: BP 122/83
[2019-02-14] MEDS: AMLODIPINE 2.5MG TABLET PO SCH (20:38)
[2019-02-14] MEDS: ATORVASTATIN CALCIUM 20MG TABLET PO SCH (20:40)
[2019-02-14] MEDS: CARVEDILOL 6.25 MG TABLET PO SCH (20:40)
[2019-02-15] VITALS: BP 123/82
[2019-02-15 04:00] VITALS: BP 129/79
[2019-02-15 07:12] LABS: BASOPHILS % 1.7 % (0.0-2.0); EOSINOPHILS % 1.5 % (0.0-5.0); HEMOGLOBIN. 11.8 g/dL (14.0-18.0); LYMPHOCYTES % 16.6 % (20.0-50.0); MEAN CORPUSCULAR HEMOGLOBIN 23.8 pg (28.0-32.0); MEAN CORPUSCULAR VOLUME 74.7 fL (80.0-94.0); MEAN PLATELET VOLUME 8.7 fl (7.4-10.4); MONOCYTES % 13.3 % (2.0-8.0); NEUTROPHILS % 66.9 % (40.0-76.0); PLATELET 219 x1000/uL (130-400); RED BLOOD CELL COUNT 4.95 mill/uL (4.7-6.1); RED CELL DISTRIBUTION WIDTH 15.9 % (11.6-14.6)
[2019-02-15 08:00] VITALS: BP 122/78
[2019-02-15 08:11] LABS: CHLORIDE 105 mEq/L (98-107)
[2019-02-15 08:29] LABS: CREATINE KINASE 228 IU/L (39-308)
[2019-02-15 08:30] LABS: CREATINE KINASE MB FRACTION 2.2 ng/mL (0.5-3.6)
[2019-02-15] MEDS: AMLODIPINE 2.5MG TABLET PO SCH (09:00)
[2019-02-15] MEDS ORDERED: LOSARTAN POTASSIUM 25 MG TABLET PO SCH (09:00)
[2019-02-15] MEDS: ASPIRIN 81MG TABLET PO SCH (09:03)
[2019-02-15] MEDS: POTASSIUM CHLORIDE 20MEQ TABLET SR PO SCH (09:04)
[2019-02-15] MEDS: CARVEDILOL 6.25 MG TABLET PO SCH ×2 (09:06→21:00)
[2019-02-15] MEDS: FUROSEMIDE 40MG/4ML VIAL IVP SCH ×3 (09:07→16:04)
[2019-02-15 11:42] LABS: BASOPHILS % 1.3 % (0.0-2.0); EOSINOPHILS % 2.2 % (0.0-5.0); HEMATOCRIT. 40.2 % (42.0-52.0); HEMOGLOBIN. 12.7 g/dL (14.0-18.0); LYMPHOCYTES % 17.1 % (20.0-50.0); MEAN CORPUSCULAR HEMOGLOBIN 23.8 pg (28.0-32.0); MEAN CORPUSCULAR VOLUME 75.8 fL (80.0-94.0); MEAN PLATELET VOLUME 8.5 fl (7.4-10.4); MONOCYTES % 13.2 % (2.0-8.0); NEUTROPHILS % 66.2 % (40.0-76.0); PLATELET 231 x1000/uL (130-400); RED BLOOD CELL COUNT 5.31 mill/uL (4.7-6.1); RED CELL DISTRIBUTION WIDTH 15.7 % (11.6-14.6)
[2019-02-15 11:53] LABS: CHLORIDE 104 mEq/L (98-107)
[2019-02-15 12:00] VITALS: BP 121/81
[2019-02-15] MEDS ORDERED: IPRATROPIUM/ALBUTEROL 0.5-3(2.5)MG/3ML NEB HHN PRN (12:00)
[2019-02-15] MEDS: SPIRONOLACTONE 25MG TABLET PO SCH (16:05)
[2019-02-15 18:00] VITALS: BP 120/81
[2019-02-15 20:00] VITALS: BP 106/72
[2019-02-15] MEDS: LOSARTAN POTASSIUM 25 MG TABLET PO SCH (21:00)
[2019-02-15] MEDS: ATORVASTATIN CALCIUM 20MG TABLET PO SCH (21:46)
[2019-02-15] MEDS: ENOXAPARIN 30MG/0.3ML SYR SUBCUT SCH (21:48)
[2019-02-16] VITALS: BP 100/70
[2019-02-16 04:00] VITALS: BP 108/72
[2019-02-16 06:55] LABS: CHLORIDE 104 mEq/L (98-107)
[2019-02-16 08:00] VITALS: BP 104/76
[2019-02-16 08:01] VITALS: BP 120/76
[2019-02-16] MEDS: FUROSEMIDE 40MG/4ML VIAL IVP SCH ×3 (09:54→17:27)
[2019-02-16] MEDS: ASPIRIN 81MG TABLET PO SCH (09:55)
[2019-02-16] MEDS: SPIRONOLACTONE 25MG TABLET PO SCH (09:55)
[2019-02-16] MEDS: POTASSIUM CHLORIDE 20MEQ TABLET SR PO SCH (09:56)
[2019-02-16] MEDS: LOSARTAN POTASSIUM 25 MG TABLET PO SCH ×2 (09:57→20:58)
[2019-02-16] MEDS: AMLODIPINE 2.5MG TABLET PO SCH (10:00)
[2019-02-16] MEDS: CARVEDILOL 6.25 MG TABLET PO SCH ×2 (10:13→20:58)
[2019-02-16] MEDS: ENOXAPARIN 30MG/0.3ML SYR SUBCUT SCH ×2 (10:43→20:57)
[2019-02-16 16:00] VITALS: BP 109/74
[2019-02-16] MEDS ORDERED: METOLAZONE 5MG TABLET PO NR (16:30)
[2019-02-16 20:00] VITALS: BP 115/72
[2019-02-16] MEDS: ATORVASTATIN CALCIUM 20MG TABLET PO SCH (20:57)
[2019-02-17] VITALS: BP 102/65
[2019-02-17 04:00] VITALS: BP 102/58
[2019-02-17 08:00] VITALS: BP 119/65
[2019-02-17] MEDS: ASPIRIN 81MG TABLET PO SCH (08:41)
[2019-02-17] MEDS: ENOXAPARIN 30MG/0.3ML SYR SUBCUT SCH (08:41)
[2019-02-17] MEDS: SPIRONOLACTONE 25MG TABLET PO SCH (08:42)
[2019-02-17] MEDS: AMLODIPINE 2.5MG TABLET PO SCH (08:42)
[2019-02-17] MEDS: LOSARTAN POTASSIUM 25 MG TABLET PO SCH (08:42)
[2019-02-17] MEDS: POTASSIUM CHLORIDE 20MEQ TABLET SR PO SCH (08:42)
[2019-02-17] MEDS: FUROSEMIDE 40MG/4ML VIAL IVP SCH ×3 (08:43→16:50)
[2019-02-17] MEDS: CARVEDILOL 6.25 MG TABLET PO SCH (08:43)
[2019-02-17 10:13] LABS: BASOPHILS % 1.4 % (0.0-2.0); EOSINOPHILS % 2.5 % (0.0-5.0); HEMATOCRIT. 35.7 % (42.0-52.0); HEMOGLOBIN. 11.3 g/dL (14.0-18.0); LYMPHOCYTES % 12.5 % (20.0-50.0); MEAN CORPUSCULAR HEMOGLOBIN 23.9 pg (28.0-32.0); MEAN CORPUSCULAR VOLUME 75.6 fL (80.0-94.0); MEAN PLATELET VOLUME 8.7 fl (7.4-10.4); MONOCYTES % 12.3 % (2.0-8.0); NEUTROPHILS % 71.3 % (40.0-76.0); PLATELET 198 x1000/uL (130-400); RED BLOOD CELL COUNT 4.72 mill/uL (4.7-6.1); RED CELL DISTRIBUTION WIDTH 15.1 % (11.6-14.6)
[2019-02-17 10:27] LABS: CHLORIDE 101 mEq/L (98-107)
[2019-02-17 12:00] VITALS: BP 110/58
[2019-02-17] MEDS ORDERED: LACTULOSE 20G/30ML UDC PO SCH (14:00)
[2019-02-17 14:25] VITALS: BP 110/58
[2019-02-17 16:00] VITALS: BP 105/69
[2019-03-14] MEDS ORDERED: FUROSEMIDE 40MG/4ML VIAL IVP SCH (12:00)
[2019-03-14] MEDS ORDERED: LOSARTAN POTASSIUM 25 MG TABLET PO SCH (12:00)
[2019-03-14] MEDS ORDERED: SPIRONOLACTONE 25MG TABLET PO SCH (15:21)
== END 2019-02-17 18:16 | disposition home or self-care (01) | DRG 292 ==
LOC: ER 09:41 → 5WST 14:48 → EDBEDREQ 15:04 → ENRESERV 16:25
PROVIDERS: ADMIT Internal Medicine; ATTEND Internal Medicine
DX: I11.0 Hypertensive heart disease with heart failure (principal); E44.0 Moderate protein-calorie malnutrition; E16.2 Hypoglycemia, unspecified; I50.23 Acute on chronic systolic (congestive) heart failure; I42.9 Cardiomyopathy, unspecified; E87.6 Hypokalemia; E78.5 Hyperlipidemia, unspecified; I27.20 Pulmonary hypertension, unspecified; D50.9 Iron deficiency anemia, unspecified; E78.00 Pure hypercholesterolemia, unspecified; I07.1 Rheumatic tricuspid insufficiency; K59.00 Constipation, unspecified; Z79.899 Other long term (current) drug therapy; Z79.82 Long term (current) use of aspirin; Z68.30 Body mass index [BMI] 30.0-30.9, adult
CPT/HCPCS: 36415; 71045; 80048; 80053; 80305; 82550; 82553; 83880; 84145; 84443; 84484; 85025; 93005; 93306; 94640; 96374; 99285; J1650; J1940

== ENCOUNTER 2019-03-13 09:52 | Inpatient (IN) | payer MEDICARE, MEDICAID ==
[~2019-03-13] VITALS: Ht 180.3 cm; Wt 104.3 kg
[~2019-03-13 09:52] MED LIST changes: +CARV3.1242 MT
[2019-03-13 11:49] LABS: BASOPHILS % 1.1 % (0.0-2.0); EOSINOPHILS % 3.4 % (0.0-5.0); HEMATOCRIT. 41.8 % (42.0-52.0); HEMOGLOBIN. 13.1 g/dL (14.0-18.0); LYMPHOCYTES % 15.3 % (20.0-50.0); MEAN CORPUSCULAR HEMOGLOBIN 23.8 pg (28.0-32.0); MEAN CORPUSCULAR VOLUME 75.9 fL (80.0-94.0); MEAN PLATELET VOLUME 8.5 fl (7.4-10.4); MONOCYTES % 14.8 % (2.0-8.0); NEUTROPHILS % 65.4 % (40.0-76.0); PLATELET 184 x1000/uL (130-400); RED CELL DISTRIBUTION WIDTH 15.7 % (11.6-14.6)
[2019-03-13 11:53] LABS: CHLORIDE 103 mEq/L (98-107); INR 1.3; PROTHROMBIN TIME 12.7 sec (9.6-11.0)
[2019-03-13] MEDS ORDERED: FUROSEMIDE 40MG/4ML VIAL IVP ONE (12:00)
[2019-03-13] MEDS ORDERED: POTASSIUM CHLORIDE 20MEQ TABLET SR PO ONE (14:30)
[2019-03-13] MEDS ORDERED: LEVOFLOXACIN 750MG PREMIX 150 ML IV ONE (14:30)
[2019-03-13] MEDS ORDERED: ONDANSETRON HCL 4MG/2ML INJ IV PRN (17:00)
[2019-03-13] MEDS ORDERED: POTASSIUM CHLORIDE 20MEQ TABLET SR PO SCH (17:00)
[2019-03-13] MEDS ORDERED: FUROSEMIDE 40MG/4ML VIAL IVP SCH (17:00)
[2019-03-13] MEDS ORDERED: ACETAMINOPHEN 325MG TABLET PO PRN (17:00)
[2019-03-13 23:12] VITALS: BP 112/73
[2019-03-14] VITALS: BP 108/66
[2019-03-14] MEDS: CARVEDILOL 6.25 MG TABLET PO SCH ×2 (01:00→21:06)
[2019-03-14 04:00] VITALS: BP 103/60
[2019-03-14 06:44] LABS: HEMOGLOBIN. 11.7 g/dL (14.0-18.0); MEAN CORPUSCULAR HEMOGLOBIN 23.8 pg (28.0-32.0); MEAN CORPUSCULAR VOLUME 75.4 fL (80.0-94.0); MEAN PLATELET VOLUME 8.8 fl (7.4-10.4); PLATELET 177 x1000/uL (130-400); RED CELL DISTRIBUTION WIDTH 15.9 % (11.6-14.6)
[2019-03-14 07:48] LABS: CHLORIDE 106 mEq/L (98-107)
[2019-03-14 08:00] VITALS: BP 108/68
[2019-03-14] MEDS: ENOXAPARIN 30MG/0.3ML SYR SUBCUT SCH ×2 (09:00→21:00)
[2019-03-14] MEDS: LOSARTAN POTASSIUM 25 MG TABLET PO SCH (09:00)
[2019-03-14 09:16] LABS: INR 1.2; PARTIAL THROMBOPLASTIN TIME 30.3 sec (23.4-31.0); PROTHROMBIN TIME 12.7 sec (9.6-11.0)
[2019-03-14] MEDS: FUROSEMIDE 40MG/4ML VIAL IVP SCH ×2 (09:21→16:18)
[2019-03-14 12:00] VITALS: BP 115/70
[2019-03-14 16:00] VITALS: BP 121/69
[2019-03-14 20:00] VITALS: BP 116/74
[2019-03-14 20:08] LABS: PLATELET ESTIMATE NORMAL
[2019-03-15] VITALS: BP 104/74
[2019-03-15 04:00] VITALS: BP 116/65
[2019-03-15 06:54] LABS: INR 1.2; PROTHROMBIN TIME 12.5 sec (9.6-11.0)
[2019-03-15 07:52] LABS: CHLORIDE 105 mEq/L (98-107)
[2019-03-15 08:00] VITALS: BP 99/71
[2019-03-15] MEDS ORDERED: SODIUM BICARBONATE 4% (2.4MEQ) 5ML VIAL IV ONE (08:01)
[2019-03-15] MEDS: CARVEDILOL 6.25 MG TABLET PO SCH ×2 (08:09→21:57)
[2019-03-15] MEDS: FUROSEMIDE 40MG/4ML VIAL IVP SCH ×2 (08:09→16:19)
[2019-03-15] MEDS: POTASSIUM CHLORIDE 20MEQ TABLET SR PO SCH (08:09)
[2019-03-15] MEDS: LOSARTAN POTASSIUM 25 MG TABLET PO SCH (08:09)
[2019-03-15] MEDS: ENOXAPARIN 30MG/0.3ML SYR SUBCUT SCH ×2 (08:09→21:57)
[2019-03-15 12:00] VITALS: BP 116/62
[2019-03-15 16:00] VITALS: BP 95/62
[2019-03-15] MEDS ORDERED: IPRATROPIUM/ALBUTEROL 0.5-3(2.5)MG/3ML NEB HHN PRN (18:00)
[2019-03-15 20:00] VITALS: BP 113/79
[2019-03-15] MEDS: IPRATROPIUM/ALBUTEROL 0.5-3(2.5)MG/3ML NEB HHN SCH (20:28)
[2019-03-16] VITALS: BP 138/81
[2019-03-16] MEDS: IPRATROPIUM/ALBUTEROL 0.5-3(2.5)MG/3ML NEB HHN SCH ×4 (01:59→20:57)
[2019-03-16 04:00] VITALS: BP 117/58
[2019-03-16 06:33] LABS: HEMATOCRIT. 37.9 % (42.0-52.0); HEMOGLOBIN. 11.9 g/dL (14.0-18.0); MEAN CORPUSCULAR VOLUME 76.1 fL (80.0-94.0); MEAN PLATELET VOLUME 9.1 fl (7.4-10.4); PLATELET 158 x1000/uL (130-400); RED BLOOD CELL COUNT 4.98 mill/uL (4.7-6.1)
[2019-03-16 07:40] LABS: CHLORIDE 102 mEq/L (98-107)
[2019-03-16 08:00] VITALS: BP 118/68
[2019-03-16] MEDS: POTASSIUM CHLORIDE 20MEQ TABLET SR PO SCH (09:36)
[2019-03-16] MEDS: FUROSEMIDE 40MG/4ML VIAL IVP SCH ×2 (09:36→16:55)
[2019-03-16] MEDS: LOSARTAN POTASSIUM 25 MG TABLET PO SCH (09:36)
[2019-03-16] MEDS: CARVEDILOL 6.25 MG TABLET PO SCH ×2 (09:36→21:00)
[2019-03-16] MEDS: ENOXAPARIN 30MG/0.3ML SYR SUBCUT SCH ×2 (09:37→21:44)
[2019-03-16 12:00] VITALS: BP 97/58
[2019-03-16] MEDS: LEVOFLOXACIN 750MG PREMIX 150 ML IV SCH (14:15)
[2019-03-16 16:00] VITALS: BP 104/56
[2019-03-16 20:00] VITALS: BP 102/61
[2019-03-16 20:15] LABS: PLATELET ESTIMATE NORMAL
[2019-03-17] VITALS: BP 112/70
[2019-03-17] MEDS: IPRATROPIUM/ALBUTEROL 0.5-3(2.5)MG/3ML NEB HHN SCH ×4 (01:30→19:55)
[2019-03-17 04:00] VITALS: BP 124/77
[2019-03-17 08:00] VITALS: BP 120/75
[2019-03-17] MEDS: CARVEDILOL 6.25 MG TABLET PO SCH ×2 (08:52→21:00)
[2019-03-17] MEDS: FUROSEMIDE 40MG/4ML VIAL IVP SCH ×2 (08:52→17:11)
[2019-03-17] MEDS: LOSARTAN POTASSIUM 25 MG TABLET PO SCH (08:52)
[2019-03-17] MEDS: POTASSIUM CHLORIDE 20MEQ TABLET SR PO SCH (08:52)
[2019-03-17] MEDS: ENOXAPARIN 30MG/0.3ML SYR SUBCUT SCH ×2 (08:53→21:40)
[2019-03-17] MEDS: LEVOFLOXACIN 750MG PREMIX 150 ML IV SCH (11:48)
[2019-03-17 12:00] VITALS: BP 117/63
[2019-03-17 16:00] VITALS: BP 148/69
[2019-03-17 20:00] VITALS: BP 105/61
[2019-03-18] VITALS (7 sets, daily range): BP systolic 96–136; BP diastolic 56–87
[2019-03-18] MEDS: IPRATROPIUM/ALBUTEROL 0.5-3(2.5)MG/3ML NEB HHN SCH ×4 (00:18→20:42)
[2019-03-18 07:37] LABS: BASOPHILS % 1.4 % (0.0-2.0); EOSINOPHILS % 2.1 % (0.0-5.0); HEMATOCRIT. 39.8 % (42.0-52.0); HEMOGLOBIN. 12.8 g/dL (14.0-18.0); LYMPHOCYTES % 14.3 % (20.0-50.0); MEAN CORPUSCULAR HEMOGLOBIN 24.1 pg (28.0-32.0); MEAN CORPUSCULAR VOLUME 75.1 fL (80.0-94.0); MONOCYTES % 12.4 % (2.0-8.0); NEUTROPHILS % 69.8 % (40.0-76.0); RED CELL DISTRIBUTION WIDTH 15.7 % (11.6-14.6)
[2019-03-18 08:01] LABS: CHLORIDE 101 mEq/L (98-107)
[2019-03-18] MEDS: ENOXAPARIN 30MG/0.3ML SYR SUBCUT SCH ×2 (09:10→20:31)
[2019-03-18] MEDS: CARVEDILOL 6.25 MG TABLET PO SCH (09:11)
[2019-03-18] MEDS: POTASSIUM CHLORIDE 20MEQ TABLET SR PO SCH (09:11)
[2019-03-18] MEDS: FUROSEMIDE 40MG/4ML VIAL IVP SCH ×2 (09:11→17:53)
[2019-03-18] MEDS: LOSARTAN POTASSIUM 25 MG TABLET PO SCH (09:11)
[2019-03-18 09:57] LABS: PLATELET 155 x1000/uL (130-400)
[2019-03-18] MEDS: LEVOFLOXACIN 750MG PREMIX 150 ML IV SCH (11:44)
[2019-03-18] MEDS ORDERED: LEVO750T21 MT (13:36)
[2019-03-18] MEDS ORDERED: CARVEDILOL 12.5MG TABLET PO SCH (21:00)
[2019-03-19 04:00] VITALS: BP 104/64
[2019-03-19 07:51] LABS: BASOPHILS % 0.9 % (0.0-2.0); EOSINOPHILS % 2.2 % (0.0-5.0); HEMATOCRIT. 37.4 % (42.0-52.0); LYMPHOCYTES % 13.3 % (20.0-50.0); MEAN CORPUSCULAR HEMOGLOBIN 24.1 pg (28.0-32.0); MEAN CORPUSCULAR VOLUME 74.8 fL (80.0-94.0); MEAN PLATELET VOLUME 9.6 fl (7.4-10.4); MONOCYTES % 14.5 % (2.0-8.0); NEUTROPHILS % 69.1 % (40.0-76.0); PLATELET 182 x1000/uL (130-400); RED CELL DISTRIBUTION WIDTH 15.5 % (11.6-14.6)
[2019-03-19 08:54] LABS: CHLORIDE 100 mEq/L (98-107)
[2019-03-19 09:23] VITALS: BP 125/75
[2019-03-19] MEDS ORDERED: LEVOFLOXACIN 250MG TABLET PO SCH (11:00)
[2019-03-19] MEDS ORDERED: LEVOFLOXACIN 500MG TABLET PO SCH (11:00)
== END 2019-03-19 09:45 | disposition home or self-care (01) | DRG 193 ==
LOC: ER 10:53 → 5WST 14:34 → ENRESERV 22:10
PROVIDERS: ADMIT Internal Medicine; ATTEND Internal Medicine
PROC: 0W993ZX Drainage of Right Pleural Cavity, Percutaneous Approach, Diagnostic (ICD-10-PCS; principal; 2019-03-15)
DX: J18.9 Pneumonia, unspecified organism (principal); J96.00 Acute respiratory failure, unspecified whether with hypoxia or hypercapnia; I50.23 Acute on chronic systolic (congestive) heart failure; E44.0 Moderate protein-calorie malnutrition; J93.9 Pneumothorax, unspecified; J44.0 Chronic obstructive pulmonary disease with (acute) lower respiratory infection; J91.8 Pleural effusion in other conditions classified elsewhere; I42.9 Cardiomyopathy, unspecified; I11.0 Hypertensive heart disease with heart failure; E87.6 Hypokalemia; I27.21 Secondary pulmonary arterial hypertension; E78.5 Hyperlipidemia, unspecified; I25.10 Atherosclerotic heart disease of native coronary artery without angina pectoris; I44.7 Left bundle-branch block, unspecified; I36.1 Nonrheumatic tricuspid (valve) insufficiency; E78.00 Pure hypercholesterolemia, unspecified; D64.9 Anemia, unspecified; N50.89 Other specified disorders of the male genital organs; I27.29 Other secondary pulmonary hypertension; Z68.32 Body mass index [BMI] 32.0-32.9, adult; Z79.899 Other long term (current) drug therapy; Z82.49 Family history of ischemic heart disease and other diseases of the circulatory system; Z79.82 Long term (current) use of aspirin; I25.2 Old myocardial infarction
CPT/HCPCS: 32555; 36415; 71045; 71250; 80048; 80053; 83735; 83880; 84145; 84484; 85025; 93005; 93970; 94640; 96365; 96375; 96376; 99285; J1650; J1940; J1956; J3490; J7620